=== PATIENT | female | born 1990 | race Two or more races ===

== ENCOUNTER 2019-04-20 10:35 | Inpatient (IN) | payer OTHER ==
[2019-04-20] MEDS ORDERED: DEXTROSE 5%-LACTATED RINGERS 1,000 ML IV SCH (11:45)
[2019-04-20 12:11] VITALS: BMI 24.5
[2019-04-20 12:12] LABS: BASO % 0.5 % (0-2.0); EOS % 0.9 % (0-4.5); HEMOGLOBIN 8.2 GM/dL (10.7-15.3); LYMPH % 15.2 % (8-40); MCHC 30.5 g/dl (32.0-36.0); MEAN CELL VOLUME 62.5 fl (80-96); MONO % 7.4 % (3.8-10.2); RBC 4.32 M/mm3 (3.60-5.2); RDW 18.3 % (11.6-15.6); WHITE BLOOD COUNT 12.9 K/mm3 (4.0-10.0)
[2019-04-20 12:26] LABS: MCH 19.1 pg (25.7-33.7); PLATELET COUNT 268 K/MM3 (134-434)
[2019-04-20 12:32] LABS: INR 0.92 (0.83-1.09); PROTHROMBIN TIME (PATIENT) 10.8 SEC (9.7-13.0)
[2019-04-20 12:35] LABS: ACTIVATED PTT 26.5 SECONDS (25.2-36.5)
[2019-04-20 12:39] LABS: BLOOD UREA NITROGEN 12.8 mg/dL (7-18); CALCIUM 8.9 mg/dL (8.5-10.1); CREATININE 0.6 mg/dL (0.55-1.3); POTASSIUM 4.5 mmol/L (3.5-5.1)
[2019-04-20] MEDS ORDERED: LIDOCAINE HCL 1% PRESERVATIVE FREE - 30ML VIAL ONE (12:52)
[2019-04-20] MEDS ORDERED: OXYTOCIN 20 UNITS in 0.9% NS 20 UNIT/1,000 ML INFUS.BAG IV ONE ×2 (12:52→14:19)
[2019-04-20] MEDS ORDERED: PROMETHAZINE HCL 25 MG/1 ML VIAL IVPUSH ONE (12:54)
[2019-04-20] MEDS ORDERED: BUTORPHANOL TARTRATE 1 MG/ML VIAL IVPB ONE (12:54)
--- NOTE | 2019-04-20 12:54 | HP ---
Past Medical History - Primary Care Physician PCP:: Sandrine Newman - Admission Chief Complaint: Labor History of Present Illness: 28 yo ega 38.6 weeks admitted in labor History Source: Patient Limitations to Obtaining History: No Limitations - Past Medical History ...: 2 ...Para: 1 ...Term: 1 ...LMP: 07/23/19 ...EDC by Sono: 04/28/19 - Past Surgical History Past Surgical History: Yes: None Hx Myomectomy: No Hx Transabdominal Cerclage: No - Smoking History Smoking history: Never smoked - Alcohol/Substance Use Hx Alcohol Use: No History of Substance Use: reports: None - Social History Usual Living Arrangement: Yes: With Spouse History of Recent Travel: No Home Medications - Allergies Allergies/Adverse Reactions: Allergies Allergy/AdvReac Type Severity Reaction Status Date / Time Penicillins Allergy Verified 01/08/15 13:01 - Home Medications Home Medications: Ambulatory Orders Vitamins (Sjr) - 1 tab PO DAILY #0 tablet 10/27/12 Ibuprofen [Motrin -] 600 mg PO QID #28 tablet 04/20/19 Review of Systems - Review of Systems Constitutional: reports: No Symptoms Eyes: reports: No Symptoms HENT: reports: No Symptoms Neck: reports: No Symptoms Cardiovascular: reports: No Symptoms Respiratory: reports: No Symptoms Gastrointestinal: reports: No Symptoms Genitourinary: reports: No Symptoms Breasts: reports: No Symptoms Reported Musculoskeletal: reports: No Symptoms Integumentary: reports: No Symptoms Neurological: reports: No Symptoms Endocrine: reports: No Symptoms Hematology/Lymphatic: reports: No Symptoms Psychiatric: reports: No Symptoms Physical Exam - Maternity Vital Signs: Vital Signs Temperature 98.6 F 04/20/19 12:02 Pulse Rate 97 H 04/20/19 12:02 Respiratory Rate 20 04/20/19 12:02 Blood Pressure 126/84 04/20/19 12:02 O2 Sat by Pulse Oximetry (%) Constitutional: Yes: Well Nourished, No Distress HENT: Yes: WNL Neck: Yes: WNL Cardiovascular: Yes: WNL Lungs: Clear to auscultation Breast(s): Yes: WNL - Abdominal Exam/OB Fundal Height: 38 Number of Fetuses: Single Presentation: Vertex Contractions: Yes Regularity: Regular Category: I Decelerations: None - Vaginal Exam/OB Speculum Exam: No Dilatation (cm): FD Effacement (%): 100 Amniotic Membrane Status: Ruptured Amniotic Fluid: Yes: Clear Presentation: Vertex/Position Station: 0 - Physical Exam Musculoskeletal: Yes: WNL Extremities: Yes: WNL Edema: No Integumentary: Yes: WNL Psychiatric: Yes: WNL, Alert, Oriented - Labs Lab Results: CBC, BMP 04/20/19 12:00 04/20/19 12:00 Hemorrhage Risk Assessment - Risk Factors Risk Score: 1 Risk Level: Medium Risk Problem List - Problems (1) Anemia affecting in third trimester Code(s): O99.013 - ANEMIA COMPLICATING , THIRD TRIMESTER Assessment/Plan at 38.6 week Active Labor Cat 1 Plan Anticipate vaginal delivery
[2019-04-20] MEDS ORDERED: WITCH HAZEL 50% (TUCKS) 40 PAD/JAR PAD TP PRN (12:55)
[2019-04-20] MEDS ORDERED: BISACODYL 10 MG SUPP.RECT PR PRN (12:55)
[2019-04-20] MEDS ORDERED: METHYLERGONOVINE MALEATE 0.2 MG/1 ML AMP IM PRN (12:55)
[2019-04-20] MEDS ORDERED: BENZOCAINE 20% 57 GM BOTTLE TP PRN (12:55)
[2019-04-20] MEDS ORDERED: BENZOCAINE 28 GM HEMORRHOIDAL OINTMENT PR PRN (12:55)
[2019-04-20] MEDS ORDERED: ELECTROLYTE-148 SOLN 1,000 ML IV SCH (13:00)
--- NOTE | 2019-04-20 13:45 | PN ---
Ante-Partal Exam - Subjective Subjective: Pt with urge to push Vital Signs: Vital Signs Temperature 98.6 F 04/20/19 12:02 Pulse Rate 97 H 04/20/19 12:02 Respiratory Rate 20 04/20/19 12:02 Blood Pressure 126/84 04/20/19 12:02 O2 Sat by Pulse Oximetry (%) Bleeding: No Headache: No Visual changes: No Right upper quadrant pain: No - Contractions Contractions: Yes Regularity: Regular Intensity: Moderate Monitor Mode: External - Exam during Labor Variability: Moderate Heart Rate Location: [facility] Category: I Monitor Decelerations: None Exam: Vaginal Dilatation (cm): FD Effacement (%): 100 Amniotic Membrane Status: Ruptured Presentation: Vertex Station: +1 - Assessment/Plan Assessment/Plan: Labor at week Cat 1 Plan anticipate vaginal delivery
[2019-04-20 13:46] LABS: ANISOCYTOSIS 1+; MACROCYTOSIS 0; PLATELET ESTIMATE NORMAL
[2019-04-20] MEDS ORDERED: IBUPROFEN 600 MG TABLET (FP) PO ONE (14:19)
[2019-04-20] MEDS ORDERED: ACETAMINOPHEN 325 MG TABLET (FP) ONE (14:19)
--- NOTE | 2019-04-20 14:21 | PN ---
Delivery - Delivery Vaginal Delivery: No Problems Episiotomy/Laceration: Right Mediolateral (mediolateral episiotomy repaired with 2-0 chromic suture shoulders delivered without comp nuchal foot shoulders delivered w/o comp) EBL (cc): 300 Delivery, Single - Stages of Labor Placenta: Yes: Spontaneous - Condition of Infant Gender: Male Position: OA - Feeding Plan Initial Plan: Elected not to breastfeed exclusively throughout hospitalization
[2019-04-20 14:26] LABS: VENOUS PC02 37.9 mmHg (41-51); VENOUS PH 7.35 (7.31-7.41); VENOUS PO2 31.9 mmHg (30-40)
[2019-04-20 14:28] LABS: ARTERIAL BLD GAS O2 SATURATION 49.4 % (95-98); ARTERIAL BLOOD GAS PCO2 43.9 mmHg (35-45); ARTERIAL BLOOD GAS pH 7.33 (7.35-7.45)
[2019-04-20] MEDS: IBUPROFEN 600 MG TABLET (FP) PO PRN ×3 (14:30→22:48)
[2019-04-20] MEDS: ACETAMINOPHEN 325 MG TABLET (FP) PO PRN ×3 (14:30→22:48)
[2019-04-20 14:32] LABS: ARTERIAL BLOOD GAS PO2 25.3 mmHg (80-105)
[2019-04-20] MEDS ORDERED: OXYTOCIN 20 UNITS in 0.9% NS 20 UNIT/1,000 ML INFUS.BAG IV SCH (15:00)
[2019-04-21] MEDS: ACETAMINOPHEN 325 MG TABLET (FP) PO PRN ×4 (02:50→19:57)
[2019-04-21] MEDS: IBUPROFEN 600 MG TABLET (FP) PO PRN ×4 (02:51→19:57)
[2019-04-21 07:49] LABS: BASO % 0.3 % (0-2.0); EOS % 1.2 % (0-4.5); LYMPH % 17.1 % (8-40); MCHC 30.1 g/dl (32.0-36.0); MEAN CELL VOLUME 63.3 fl (80-96); MEAN PLT VOLUME 7.1 fl (7.5-11.1); NEUT % 73.4 % (42.8-82.8); RBC 3.12 M/mm3 (3.60-5.2); RDW 18.4 % (11.6-15.6); WHITE BLOOD COUNT 14.6 K/mm3 (4.0-10.0)
[2019-04-21 09:33] LABS: MCH 19.1 pg (25.7-33.7)
[2019-04-21 09:35] LABS: HEMATOCRIT 19.7 % (32.4-45.2); HEMOGLOBIN 5.9 GM/dL (10.7-15.3); PLATELET COUNT 241 K/MM3 (134-434)
--- NOTE | 2019-04-21 10:01 | PN ---
Post Progress Note - Subjective Subjective: 28 yo Para 2 status post vaginal delivery, seen and evaluated. She denies any fatigue nor dizziness. H/H 5.0 Post Day: 1 Type of Delivery: Vital Signs: Vital Signs Temperature 98.1 F 04/21/19 09:29 Pulse Rate 98 H 04/21/19 09:29 Respiratory Rate 18 04/21/19 09:29 Blood Pressure 112/71 04/21/19 09:29 O2 Sat by Pulse Oximetry (%) Breast Exam: Yes: Soft Uterus: Yes: Fundus Firm Abdomen/GI: Yes: Abdomen soft, Tolerating PO Lochia: Yes: Rubra Lochia, amount: Moderate Extremities: Yes: Calves non-tender Perineum: Yes: Intact Activity: Ambulating - Labs Labs: CBC WBC 14.6 K/mm3 (4.0-10.0) H 04/21/19 07:25 RBC 3.12 M/mm3 (3.60-5.2) L 04/21/19 07:25 Hgb 5.9 GM/dL (10.7-15.3) L* 04/21/19 07:25 Hct 19.7 % (32.4-45.2) L D 04/21/19 07:25 MCV 63.3 fl (80-96) L 04/21/19 07:25 MCH 19.1 pg (25.7-33.7) L 04/21/19 07:25 MCHC 30.1 g/dl (32.0-36.0) L 04/21/19 07:25 RDW 18.4 % (11.6-15.6) H 04/21/19 07:25 Plt Count 241 K/MM3 (134-434) 04/21/19 07:25 MPV 7.1 fl (7.5-11.1) L D 04/21/19 07:25 Absolute Neuts (auto) 10.7 K/mm3 (1.5-8.0) H 04/21/19 07:25 Neutrophils % 73.4 % (42.8-82.8) 04/21/19 07:25 Lymphocytes % 17.1 % (8-40) 04/21/19 07:25 Monocytes % 8.0 % (3.8-10.2) 04/21/19 07:25 Eosinophils % 1.2 % (0-4.5) 04/21/19 07:25 Basophils % 0.3 % (0-2.0) 04/21/19 07:25 Nucleated RBC % 0 % (0-0) 04/21/19 07:25 Hypochromia 2+ 04/20/19 12:00 Platelet Estimate Normal 04/20/19 12:00 Polychromasia 1+ 04/20/19 12:00 Anisocytosis 1+ 04/20/19 12:00 Microcytosis 1+ 04/20/19 12:00 Macrocytosis 0 04/20/19 12:00 Problem List - Problems (1) Status post normal vaginal delivery Code(s): FKI4368 - (2) Severe anemia Code(s): D64.9 - ANEMIA, UNSPECIFIED Assessment/Plan Status post normal vaginal delivery Severe anemia Transfuse 2 units of PRBC's Repeat CBC in am
[2019-04-21 22:00] LABS: BASO % 0.4 % (0-2.0); EOS % 1.2 % (0-4.5); HEMOGLOBIN 9.3 GM/dL (10.7-15.3); LYMPH % 16.5 % (8-40); MCH 22.4 pg (25.7-33.7); MCHC 31.9 g/dl (32.0-36.0); MEAN CELL VOLUME 70.2 fl (80-96); MEAN PLT VOLUME 7.1 fl (7.5-11.1); MONO % 8.2 % (3.8-10.2); NEUT % 73.7 % (42.8-82.8); PLATELET COUNT 272 K/MM3 (134-434); RBC 4.14 M/mm3 (3.60-5.2); RDW 25.5 % (11.6-15.6); WHITE BLOOD COUNT 18.3 K/mm3 (4.0-10.0)
--- NOTE | 2019-04-21 23:48 | DS ---
Physical Exam-THERAPIST ASST Vital Signs: Vital Signs Temperature 98.6 F 04/21/19 18:30 Pulse Rate 91 H 04/21/19 18:30 Respiratory Rate 18 04/21/19 18:30 Blood Pressure 113/73 04/21/19 18:30 O2 Sat by Pulse Oximetry (%) Constitutional: Yes: Well Nourished Eyes: Yes: Conjunctiva Clear HENT: Yes: Atraumatic Neck: Yes: Supple Cardiovascular: Yes: Regular Rate and Rhythm Respiratory: Yes: Regular Gastrointestinal: Yes: Normal Bowel Sounds Pelvis: Yes: WNL External Genitalia: Yes: Normal Vaginal Exam: Yes: Normal Cervix: Yes: Normal Uterus: Yes: Firm ....Post : Yes: Uterus firm, Moderate lochia serosa Breast(s): Yes: WNL Musculoskeletal: Yes: WNL Neurological: Yes: Alert, Oriented ...Motor Strength: WNL Psychiatric: Yes: Alert, Oriented Labs: CBC, BMP 04/21/19 21:40 04/20/19 12:00 Delivery - Delivery Vaginal Delivery: No Problems Type of Anesthesia: Local Episiotomy/Laceration: Right Mediolateral EBL (cc): 300 Delivery, Single - Stages of Labor Date 1st Stage Initiatied: 04/20/19 Time 1st Stage Initiated: 07:00 Date 2nd Stage Initiated: 04/20/19 Time 2nd Stage Initiated: 13:15 Date of Delivery: 04/20/19 Time of Delivery: 13:55 Time Placenta Delivered: 14:05 Placenta: Yes: Spontaneous - Condition of Infant Call Center Coordinator/Guest Service Host Present: No Gender: Male Weight: 6 lb 7 oz Position: Left, OA Total Hours ROM (Hrs/Mins): 40 - 1 Minute Total Score: 9 5 Minutes Total Score: 9 - Feeding Plan Initial Plan: Elected not to breastfeed exclusively throughout hospitalization Discharge Summary Reason For Visit: LABOR Current Active Problems Anemia affecting in third trimester (Acute) Severe anemia (Acute) Status post normal vaginal delivery (Acute) Procedures: Principal: Normal vaginal delivery Hospital Course: After delivery patient developed severe anemia for which she received 2 units of PRBC's. Condition: Good - Instructions Diet, Activity, Other Instructions: Physical activity Resume your normal everyday activity as tolerated no heavy lifting or exercise until seen by your surgeon. You may walk unlimited donta of and climb stairs. You may resume driving the car when you feel safe and comfortable behind the wheel. No sexual activity as instructed. Wound care If you have a bandage, leave it on, and keep dry for 48-72 hours. After that time discard the outer bandage. If they are tapes on the skin under the out of bandage leave them in place. They will peel off in the next 7 to 10 days. Do Not Peel them off. You may shower the day after surgery. If there are tapes present on the skin, you may shower over them. Diet There are no dietary restrictions. Eat healthy, high-fiber foods. Drink 6 to 8 glasses of liquid each day. This will assist in keeping your bowels are regular. Pain management You may take Tylenol or acetaminophen or Ibuprofen (for example, Motrin, Advil etc.) from my pain prescription medication is ordered should be taken as prescribed for moderate to severe pain. Call MD for any of the following: Severe pain not relieved by medication Fever of 101 or higher Excessive bleeding or drainage on dressing Inability to urinate Disposition: HOME - Home Medications Comprehensive Discharge Medication List: Ambulatory Orders Vitamins (Sjr) - 1 tab PO DAILY #0 tablet 10/27/12 Ibuprofen [Motrin -] 600 mg PO QID #28 tablet 04/20/19
[2019-04-22] MEDS: IBUPROFEN 600 MG TABLET (FP) PO PRN (06:31)
[2019-04-22] MEDS: ACETAMINOPHEN 325 MG TABLET (FP) PO PRN (06:31)
[2019-04-22 10:26] VITALS: BP 124/82; PULSE 76; TEMP 97.7
== END 2019-04-22 11:15 | disposition home or self-care (01) | DRG 560 ==
LOC: JLDR 10:35 → J3W 15:40
PROVIDERS: ADMIT Obstetrics & Gynecology; ATTEND Obstetrics & Gynecology
PROC: 10E0XZZ Delivery of Products of Conception, External Approach (ICD-10-PCS; principal; 2019-04-20)
PROC: 0W8NXZZ Division of Female Perineum, External Approach (ICD-10-PCS; 2019-04-20)
PROC: 30233N1 Transfusion of Nonautologous Red Blood Cells into Peripheral Vein, Percutaneous Approach (ICD-10-PCS; 2019-04-20)
DX: O99.02 Anemia complicating childbirth (principal); Z3A.38 38 weeks gestation of pregnancy; Z37.0 Single live birth
CPT/HCPCS: 36415; 36430; 36600; 59409; 80048; 82803; 85025; 85610; 85730; 86593; 86850; 86900; 86901; 86922; P9038; P9058